=== PATIENT | female | born 1985 | race Caucasian/White ===

== ENCOUNTER 2017-08-05 17:31 | Inpatient (IN) | payer OTHER ==
[~2017-08-05] VITALS: Ht 168 cm; Wt 74.4 kg
[~2017-08-05 17:31] MED LIST: IBUP-2070 PO; PREN1TAB80 PO
[2017-08-05] MEDS ORDERED: RINGERS SOLUTION,LACTATED 1,000 ML IV PRN (17:50)
[2017-08-05] MEDS ORDERED: FentaNYL CITRATE-PF 100 MCG/2 ML VIAL IVP PRN (18:00)
[2017-08-05] MEDS ORDERED: METOCLOPRAMIDE HCL 5 MG/ML 2 ML VIAL IVP PRN (18:00)
[2017-08-05] MEDS ORDERED: CITRIC ACID/SODIUM CITRATE 30 ML SOLUTION UDCUP PO PRN (18:00)
[2017-08-05 18:33] LABS: BASOPHILS % (AUTO) 0.6 % (0.0-2.0); EOSINOPHILS % (AUTO) 1.2 % (1.0-6.0); HEMOGLOBIN 12.2 g/dL (12.0-16.0); LYMPHOCYTES # (AUTO) 1.6 K/uL (1.0-4.8); LYMPHOCYTES % (AUTO) 19.3 % (22.0-44.0); MEAN CORPUSCULAR HEMOGLOBIN 30.4 pg (26.0-34.0); MEAN CORPUSCULAR VOLUME 87 fL (80-100); MONOCYTES # (AUTO) 0.9 K/uL (0.1-1.0); MONOCYTES % (AUTO) 11.1 % (2.0-9.0); NEUTROPHILS # (AUTO) 5.8 K/uL (1.8-7.7); NEUTROPHILS % (AUTO) 67.8 % (40.0-70.0); PLATELET COUNT (AUTO)-OB 154 K/uL (150-450); RED BLOOD CELL COUNT(AUTO) 4.03 MIL/uL (4.00-5.20); RED CELL DISTRIBUTION WIDTH 14.6 % (11.5-14.5)
[2017-08-05] MEDS ORDERED: DINOPROSTONE 10 MG VAGINAL SUPPOSITORY VG ONE (19:00)
[2017-08-05] MEDS ORDERED: OXYGEN THERAPY IH SCH (20:00)
[2017-08-05 22:24] VITALS: BP 126/80
[2017-08-06] MEDS: RINGERS SOLUTION,LACTATED 1,000 ML IV SCH ×2 (01:20→06:09)
[2017-08-06] MEDS ORDERED: LIDOCAINE HCL/PF 1% 30 ML VIAL INJ PRN (04:00)
[2017-08-06] MEDS ORDERED: OXYTOCIN 30 UNITS/LACT RINGERS 500 ML IV ONE (04:00)
[2017-08-06] MEDS: FentaNYL CITRATE-PF 100 MCG/2 ML VIAL IVP PRN ×2 (04:30→04:35)
[2017-08-06] MEDS ORDERED: ROPIVACAINE HCL/PF 0.2% 100 ML ED ONE (05:52)
[2017-08-06] MEDS ORDERED: LANOLIN 7 GM OINTMENT TP PRN (07:45)
[2017-08-06] MEDS ORDERED: GLYCERIN/WITCH HAZEL LEAF 40 PADS JAR TP PRN (07:45)
[2017-08-06] MEDS ORDERED: BENZOCAINE 20%/MENTHOL 56 GM SPRAY CANISTER TP PRN (07:45)
[2017-08-06] MEDS ORDERED: ACETAMINOPHEN/CODEINE 300-30 MG TABLET PO PRN (07:45)
[2017-08-06 08:17] LABS: GLUCOSE,POINT OF CARE 78 MG/DL (70-110)
[2017-08-06] MEDS: IBUPROFEN 800 MG TABLET PO SCH ×3 (08:46→21:33)
[2017-08-06] MEDS: ACETAMINOPHEN/CODEINE 300-30 MG TABLET PO PRN (12:26)
[2017-08-06] MEDS: MAGNESIUM HYDROXIDE SUSPENSION 30 ML UDCUP PO SCH ×2 (15:18→21:32)
[2017-08-07] MEDS: IBUPROFEN 800 MG TABLET PO SCH ×2 (03:37→09:48)
[2017-08-07] MEDS: MAGNESIUM HYDROXIDE SUSPENSION 30 ML UDCUP PO SCH (08:14)
[2017-08-07] MEDS: ACETAMINOPHEN/CODEINE 300-30 MG TABLET PO PRN (08:14)
== END 2017-08-07 12:00 | disposition home or self-care (01) | DRG 775 ==
LOC: OBSVTOIN 17:31 → 4S 17:31
PROVIDERS: ADMIT Obstetrics & Gynecology; ATTEND Obstetrics & Gynecology
PROC: 10E0XZZ Delivery of Products of Conception, External Approach (ICD-10-PCS; principal; 2017-08-05)
PROC: 0UQMXZZ Repair Vulva, External Approach (ICD-10-PCS; 2017-08-05)
PROC: 3E0R3BZ Introduction of Anesthetic Agent into Spinal Canal, Percutaneous Approach (ICD-10-PCS; 2017-08-05)
PROC: 00HU33Z Insertion of Infusion Device into Spinal Canal, Percutaneous Approach (ICD-10-PCS; 2017-08-05)
DX: O71.82 Other specified trauma to perineum and vulva (principal); Z37.0 Single live birth; Z3A.40 40 weeks gestation of pregnancy
CPT/HCPCS: 82962; J2590; J2795; J3010; J7120